=== PATIENT | female | born 1965 | race Native Hawaiian/Other Pacific Islander ===

== ENCOUNTER → 2016-08-08 | Day surgery (SDC) | payer BC ==
[~2016-08-08] MED LIST: BUPIVACAINE/EPINEPHRINE 0.5% PF 30 ML VIAL ONE; LACTATED RINGER'S 1000 ML INJ 1,000 ML ONE; MIDAZOLAM HCL 2 MG/2 ML VIAL ONE; ONDANSETRON HCL 4 MG/2 ML VIAL IV PUSH ONE; PROPOFOL 500 MG/50 ML BTL IV ONE; SODIUM CHLORIDE 0.9% INJ 10 ML ONE; ceFAZolin 2 GM PREMIX 50 ML ONE; diphenhydrAMINE HCL 50 MG/ML VIAL ONE
--- NOTE | 2016-08-08 09:40 | TN ---
cc: BOO PUENTE M.D. DATE OF SURGERY: 08/08/2016 PREOPERATIVE DIAGNOSIS Metastatic right breast cancer. POSTOPERATIVE DIAGNOSIS Metastatic right breast cancer. PROCEDURE PERFORMED Left subclavian [id number] with intraoperative fluoroscopy. SURGEON Boo Puente EPIC WILLOW ANALYST Marium Waters MS III ANESTHESIA General TIVA with local. COMPLICATIONS None INDICATION FOR PROCEDURE Ms. Johansen is a pleasant 51-year-old female who unfortunately has metastatic right breast cancer. She is undergoing neoadjuvant chemotherapy with Dr. Gregoria Cabezas. She was seen and evaluated in the office yesterday and offered Hdxpdy-V-[id number] placement. Risks and benefits of Ipoogu-G-Obsg placement was discussed with her and she was agreeable. DETAILS OF PROCEDURE The patient was identified, brought to the operating room and placed supine on the operating table. After adequate IV sedation was achieved the anterior chest and neck was prepped and draped in a standard surgical fashion. 0.25% Marcaine was injected into the skin and subcutaneous tissue around the left clavicle. The left subclavian vein was then accessed without difficulty using an 18-gauge needle. The guidewire was advanced and followed to the level of the superior vena cava. A subcutaneous pocket was then fashioned in the left anterior chest using sharp dissection. The introducer was then placed over the guidewire and confirmed in the superior vena cava. The guidewire was then removed and catheter was inserted. The catheter was advanced about 19 cm and was found to lie in the superior vena cava. The catheter was then brought down into the subcutaneous pocket. The catheter was attached to the port with a locking device. The port was tested and found to have excellent blood return and easy ability to flush. The port was placed in the subcutaneous pocket and secured with a 2-0 Prolene suture. The subcutaneous pocket was injected with additional local anesthetic and closed in two layers using a 4-0 Vicryl. Sterile dressings were applied and the patient was awakened and brought to Recovery in stable condition. A chest x-ray will be obtained in Recovery. MD KIRK Isbell/BJ /8:47 AM /9:29 AM
== END | disposition home or self-care (01) ==
LOC: ESDC 06:48
PROVIDERS: ATTEND Surgery Trauma Surgery
DX: C50.911 Malignant neoplasm of unspecified site of right female breast (principal)
CPT/HCPCS: 00532; 36561; 77001; C1788; J0690; J1200; J1642; J2250; J2405; J3010; J7120

== ENCOUNTER → 2016-12-26 | Day surgery (SDC) | payer BC ==
[~2016-12-26] MED LIST changes: +BUPIVACAINE HCL PF 0.5% 10 ML VIAL ONE; -BUPIVACAINE/EPINEPHRINE 0.5% PF 30 ML VIAL ONE; +ISOSULFAN BLUE 50 MG/5 ML VIAL SQ ONE; +KETOROLAC TROMETHAMINE 30 MG/ML (IVP) VIAL IV PUSH ONE; -LACTATED RINGER'S 1000 ML INJ 1,000 ML ONE; +MORPHINE SULFATE 4 MG/ML INJ IV ONE; +MORPHINE SULFATE 4 MG/ML INJ ONE; +PROPOFOL 200 MG/20 ML AMP IV ONE; -PROPOFOL 500 MG/50 ML BTL IV ONE; -SODIUM CHLORIDE 0.9% INJ 10 ML ONE; -diphenhydrAMINE HCL 50 MG/ML VIAL ONE; +oxyCODONE/ACETAMINOPHEN 5 MG/325 MG TAB ONE
--- NOTE | 2016-12-26 13:55 | TN ---
cc: NELLIE GARCIA DATE OF SURGERY: 12/26/2016 OPERATIVE REPORT PREOPERATIVE DIAGNOSIS Right breast cancer. POSTOPERATIVE DIAGNOSIS Right breast cancer. PROCEDURE PERFORMED 1. Right breast needle-localized lumpectomy and right axillary sentinel lymph node biopsy with oncoplastic right breast reconstruction. 2. Removal of left subclavian Wxcasa-C-[id number]. SURGEON Nellie Garcia ANESTHESIA General via LMA device. INDICATION The patient is a 51-year-old female who presented with clinical stage III right breast cancer at 7 o'clock and 8 o'clock as well as adenopathy. She responded well to neoadjuvant chemotherapy and now presents for definitive surgical therapy. Preoperative imaging did not demonstrate significant residual disease in the breast. Clinically she no longer has adenopathy. FINDINGS At the time of surgery six sentinel lymph nodes were removed. #1 had a count of 1750 and was 2+ blue. #2 had a count of 772 and was 1+ blue. #3 had a count of 303 and was 2+ blue. Jasper lymph node #4 had a count of 132 and was 1+ blue. Jasper lymph nodes 5 and 6 were enlarged and somewhat suspicious with no count. Touch-prep analysis of all the six lymph nodes was negative for metastatic disease. A specimen mammogram was also performed which clearly demonstrated one of the clips but the other one was not clearly visible in the specimen. PROCEDURE After informed consent was obtained and site verification was performed, the patient was brought to the radiology suite where she underwent needle localization of the 7 and 8 o'clock biopsy sites utilizing a single wire as well as peritumoral radionuclide injection. She was then brought to the major operating room where she underwent general anesthesia via an LMA device. She was given a single dose of IV Ancef and sequential compression hose were placed. 2 cc of half-strength Lymphazurin were injected in the subareolar right breast and a five-minute massage was performed. The right breast and arm as well as the left chest were then prepped and draped in sterile fashion. 0.5% Marcaine was used to infiltrate an incision at the inferior aspect of the right axillary hairline as well as in the lateral right inframammary crease. The axillary incision was sharply opened and electrocautery dissection was performed until the clavipectoral fascia was divided and the level I axilla was entered. Multiple low level I lymph nodes were immediately identified and each was circumferentially dissected free from surrounding structures using the Harmonic scalpel with the counts as noted. Three of the nodes also had Lymphazurin coloration and touch-prep analysis was negative for metastatic disease. Good hemostasis was noted in the axilla and the wound was closed using interrupted 3-0 Vicryl subcutaneous sutures and a 4-0 Monocryl subcuticular suture. Steri-Strips and a sterile dressing were applied. Attention was then turned to the right breast where a single wire was identified between 7 and 8 o'clock. The more inferior lesion was identified at 7 o'clock 2 cm from the nipple, and the more lateral lesion was at 8 o'clock 4 cm from the nipple, and each of the clips was within 1-2 cm of the wire. An inframammary crease incision was created and sharp dissection was performed until the wire entry point through the skin was identified and secured with a hemostat. The wire was cut off at the skin with a pin cutter and a 2-0 silk transfixion suture was placed at the wire entry point into the breast tissue. Sharp and electrocautery dissection was performed beyond the tip of the wire and the specimen was oriented with two sutures laterally, one short suture superiorly, and one long suture anteriorly. Specimen mammogram did demonstrate the 7 o'clock clip but the 8 o'clock clip was not clearly visualized. The posterior margin of resection was the pectoralis muscle. A more superior lateral area was re-excised with a stitch on the new superior lateral margin but the clip was not clearly identified in this specimen. A third more posterior area at 8 o'clock 4 cm from the nipple was also excised with a stitch on the new posterior margin but this was not sent for imaging. There was a substantial defect between skin and muscle and oncoplastic reconstruction was performed after clipping the chest wall at the superior, inferior, medial and lateral portions of the lumpectomy cavity. The overlying breast tissue was circumferentially dissected off of the pectoralis muscle using electrocautery and it was also dissected at the level of the subcutaneous tissue. Interrupted 3-0 Vicryl was used to reapproximate the breast tissue and the subcutaneous tissue was then re-approximated with 3-0 Vicryl. The skin was re-approximated with a 4-0 Monocryl subcuticular suture and Steri-Strips and a sterile dressing were applied. The Eoyhda-[id number]-Jsmk site was anesthetized with 0.5% Marcaine and sharply incised. The port was immediately identified and sharply dissected free from surrounding structures and delivered through the wound. The catheter was easily withdrawn with minimal resistance. Hemostasis was easily obtained with electrocautery and the wound was closed using interrupted 3-0 Vicryl subcutaneous suture and a 4-0 Monocryl subcuticular suture. Steri-Strips and sterile dressing were applied. The patient tolerated the procedure well with an estimated blood loss of 50 cc. She was extubated in the operating room and brought to the recovery room in good condition. All sponge and needle counts were correct at the conclusion of the case. MD JOSSE Cotto/BJ /1:17 PM /1:36 PM
== END | disposition home or self-care (01) ==
LOC: ESDC 07:59
PROVIDERS: ATTEND Surgery
DX: C50.511 Malignant neoplasm of lower-outer quadrant of right female breast (principal)
CPT/HCPCS: 00400; 01610; 19125; 36590; 38525; 38792; 88307; 88333; J0690; J1885; J2250; J2270; J2405; J3010; Q9968; 88305

== ENCOUNTER → 2017-01-23 | Day surgery (SDC) | payer BC ==
[~2017-01-23] MED LIST changes: -ISOSULFAN BLUE 50 MG/5 ML VIAL SQ ONE; -KETOROLAC TROMETHAMINE 30 MG/ML (IVP) VIAL IV PUSH ONE; +KETOROLAC TROMETHAMINE 30 MG/ML (IVP) VIAL ONE; +LACTATED RINGER'S 1000 ML INJ 1,000 ML ONE; +MEPERIDINE HCL 25 MG/ML VIAL ONE; -MORPHINE SULFATE 4 MG/ML INJ IV ONE; +PROPOFOL 100 MG/10 ML INJ IV ONE; -PROPOFOL 200 MG/20 ML AMP IV ONE
--- NOTE | 2017-01-23 17:10 | TN ---
cc: NELLIE GARCIA DATE OF SURGERY: 01/23/2017. PRINCIPAL DIAGNOSIS: Right breast cancer status post lumpectomy and sentinel lymph node biopsy with delayed lumpectomy hematoma. POSTOPERATIVE DIAGNOSIS: Right breast cancer status post lumpectomy and sentinel lymph node biopsy with delayed lumpectomy hematoma. PROCEDURE PERFORMED: Evacuation of right breast hematoma. SURGEON: Nellie Garcia MD. ANESTHESIA: General via LMA device. INDICATIONS FOR THE PROCEDURE: The patient is a 51-year-old who presented with multicentric right breast cancer. She completed neoadjuvant chemotherapy with an excellent clinical response and subsequently completed a needle-localized lumpectomy and sentinel lymph node biopsy. Oncoplastic reconstruction was performed and this surgery was performed on December 21. Approximately one week ago, she developed a hematoma which was symptomatic and began draining through the inframammary crease scar. She now presents for evacuation. FINDINGS AT SURGERY: Moderate amount of old hematoma with minimal clot was noted. There was no evidence of infection. DESCRIPTION OF THE PROCEDURE IN DETAIL: After informed consent was obtained and site verification was performed, the patient was brought to the major operating room where she underwent general anesthesia via LMA device. The right breast was prepped and draped in sterile fashion. The inframammary crease incision was reopened with evacuation of approximately 40 mL of serosanguineous fluid. No clot was identified but the previous oncoplastic reconstruction was no longer in place and the breast tissue had . Copious irrigation and suctioning was performed and small bleeding points were cauterized. The surrounding breast tissue was loosely reapproximated with a few interrupted three 3-0 Vicryls, but the cavity was not completely obliterated. The inframammary crease incision was then re-closed using interrupted 3-0 Vicryl subcutaneous sutures and a 4-0 Monocryl subcuticular suture. Steri-Strips and a sterile dressing were applied. The patient tolerated the procedure well with an estimated blood loss that was minimal and she was brought to the recovery room in good condition. All sponge and needle counts were correct at the conclusion of the case. Nellie Garcia MD CEJacquelyn/ERNA /2:46 PM /4:57 PM
== END | disposition home or self-care (01) ==
LOC: ESDC 12:22
PROVIDERS: ATTEND Surgery
DX: L76.22 Postprocedural hemorrhage of skin and subcutaneous tissue following other procedure (principal)
CPT/HCPCS: 00400; 10140; J0690; J1885; J2175; J2250; J2270; J2405; J3010; J7120